=== PATIENT | male | born 1985 | race Caucasian/White ===

== ENCOUNTER 2022-10-05 09:51 | Emergency (ER) | payer MEDICAID, OTHER ==
[~2022-10-05] VITALS: Ht 185.4 cm; Wt 81.0 kg
[2022-10-05 10:42] VITALS: BP 126/84
[2022-10-05] MEDS ORDERED: KETOROLAC TROMETH 60MG/2ML VIAL IM ONE (10:45)
[2022-10-05] MEDS ORDERED: IBUP800T27 PO (11:28)
[2022-10-05] MEDS ORDERED: METH750T22 PO (11:28)
[2022-10-05] MEDS ORDERED: HYDROcodone-ACET 5/325MG TAB PO ONE (11:30)
[2022-10-05] MEDS ORDERED: TRAM-297 PO (11:47)
== END 2022-10-05 11:58 | disposition home or self-care (01) ==
LOC: EDBD 09:51 → ER 09:51
DX: S39.012A Strain of muscle, fascia and tendon of lower back, initial encounter (principal); S93.401A Sprain of unspecified ligament of right ankle, initial encounter; V49.9XXA Car occupant (driver) (passenger) injured in unspecified traffic accident, initial encounter; Y93.89 Activity, other specified; Y92.89 Other specified places as the place of occurrence of the external cause; Y99.8 Other external cause status
CPT/HCPCS: 72100; 73610; 96372; 99284; J1885